=== PATIENT | male | born 1965 | race Caucasian/White ===

== ENCOUNTER 2017-04-26 10:16 | Emergency (ER) | payer MEDICARE, OTHER ==
[2017-04-26] MEDS ORDERED: ONDANSETRON HCL INJ/PF 4 MG/2 ML SDV IV ONE (10:35)
[2017-04-26] MEDS ORDERED: NORMAL SALINE 1000 ML 1,000 ML IV PRN (10:35)
--- NOTE | 2017-04-26 10:41 | ER Document Report ---
ED Medical Screen (RME) - General Chief Complaint: Vomiting Stated Complaint: BLOOD SUGAR PROBLEM Time Seen by Provider: 04/26/17 10:35 Mode of Arrival: Ambulatory Information source: Patient Notes: 51-year-old diabetic male presents with concerns of his pump is not working appropriately. Patient notes his blood sugars have been in the and Wednesday. Patient notes he had changed the infuser on Wednesday morning. He has been giving himself medications I have greeted and performed a rapid initial assessment of this patient. A comprehensive ED assessment and evaluation of the patient, analysis of test results and completion of the medical decision making process will be conducted by additional ED providers. PHYSICAL EXAMINATION: GENERAL: Well-appearing, well-nourished and in no acute distress. HEAD: Atraumatic, normocephalic. EYES: Pupils equal round extraocular movements intact, conjunctiva are normal. ENT: Nares patent NECK: Normal range of motion LUNGS: No respiratory distress Musculoskeletal: Normal range of motion NEUROLOGICAL: Normal speech, normal gait. PSYCH: Normal mood, normal affect. SKIN: Warm, Dry, normal turgor, no rashes or lesions noted. TRAVEL OUTSIDE OF THE [place] IN LAST 30 DAYS: No - Related Data Allergies/Adverse Reactions: No Known Allergies Allergy (Unverified 04/26/17 10:29) Past Medical History Renal/ Medical History: Denies: Hx Peritoneal Dialysis Physical Exam - Vital signs Vitals: Temp Pulse Resp BP Pulse Ox 98.0 F 106 H 16 139/83 H 99 04/26/17 10:30 04/26/17 10:30 04/26/17 10:30 04/26/17 10:30 04/26/17 10:30 Course - Vital Signs Vital signs: Temp Pulse Resp BP Pulse Ox 98.0 F 106 H 16 139/83 H 99 04/26/17 10:30 04/26/17 10:30 04/26/17 10:30 04/26/17 10:30 04/26/17 10:30
[2017-04-26 11:05] LABS: VENOUS BLOOD BASE EXCESS -0.7 mmol/L; VENOUS BLOOD HCO3 24.6 mmol/L (20-32); VENOUS BLOOD PCO2 42.8 mmHg (35-63); VENOUS BLOOD PH 7.38 (7.30-7.42)
[2017-04-26 11:06] LABS: ABSOLUTE BASOPHILS # (AUTO) 0.1 10^3/uL (0.0-0.2); ABSOLUTE EOSINOPHILS # (AUTO) 0.2 10^3/uL (0.0-0.6); ABSOLUTE LYMPHOCYTES (AUTO) 2.6 10^3/uL (0.5-4.7); ABSOLUTE MONOCYTES (AUTO) 1.3 10^3/uL (0.1-1.4); ABSOLUTE NEUT (AUTO) 8.8 10^3/uL (1.7-8.2); BASOPHILS % (AUTO) 0.6 % (0-2); EOSINOPHILS % (AUTO) 1.3 % (0-6); HEMATOCRIT 44.1 % (37.9-51.0); HEMOGLOBIN 15.3 g/dL (13.5-17.0); HGB HCT DIFFERENCE 1.8; LYMPHOCYTES % (AUTO) 20.1 % (13-45); MEAN CORPUSCULAR HEMOGLOBIN 30.3 pg (27.0-33.4); MEAN CORPUSCULAR HGB CONC 34.8 g/dL (32.0-36.0); MEAN CORPUSCULAR VOLUME 87 fl (80-97); MONOCYTES % (AUTO) 9.9 % (3-13); RED BLOOD COUNT 5.05 10^6/uL (4.35-5.55); RED CELL DISTRIBUTION WIDTH 12.8 % (11.5-14.0); SEGMENTED NEUTROPHILS % (AUTO) 68.1 % (42-78)
--- NOTE | 2017-04-26 11:15 | ER Document Report ---
ED General - General Chief Complaint: Vomiting Stated Complaint: BLOOD SUGAR PROBLEM Time Seen by Provider: 04/26/17 10:35 Mode of Arrival: Ambulatory Notes: 51-year-old male who presents today from the primary care physician after he states on Wednesday he felt as if his insulin pump is no longer working. He started to have some persistent elevated blood sugars in the 400s. He states he felt nauseous with some vomiting. He denies any and all chest pain, shortness of breath, calf pain or leg swelling. He denies any fevers or diarrhea. Patient went to the primary care physician's office who sent the patient immediately here without evaluation according to the patient. TRAVEL OUTSIDE OF THE [place] IN LAST 30 DAYS: No - HPI Onset: Other - See above Onset/Duration: Gradual Severity: Moderate Pain Level: Denies Associated symptoms: Other - See above Exacerbated by: Denies Relieved by: Denies Similar symptoms previously: No Recently seen / treated by doctor: No - Related Data Allergies/Adverse Reactions: No Known Allergies Allergy (Unverified 04/26/17 10:29) Past Medical History - General Information source: Patient - Social History Smoking Status: Current Every Day Smoker Frequency of alcohol use: daily Drug Abuse: None Family History: Reviewed & Not Pertinent Patient has suicidal ideation: No Renal/ Medical History: Denies: Hx Peritoneal Dialysis Review of Systems - Review of Systems Constitutional: denies: Fever EENT: denies: Eye discharge, Nose discharge Cardiovascular: denies: Chest pain, Palpitations Respiratory: denies: Short of breath Gastrointestinal: denies: Vomiting Genitourinary: denies: Dysuria Musculoskeletal: denies: Leg swelling Skin: Other - no hives. denies: Rash Neurological/Psychological: Other - no slurred speech -: Yes All other systems reviewed and negative Physical Exam - Vital signs Vitals: Temp Pulse Resp BP Pulse Ox 98.0 F 106 H 16 139/83 H 99 04/26/17 10:30 04/26/17 10:30 04/26/17 10:30 04/26/17 10:30 04/26/17 10:30 Notes: Reviewed vital signs and nursing note as charted by RN. CONSTITUTIONAL: Alert and oriented and responds appropriately to questions. Well -appearing; well-nourished HEAD: Normocephalic; atraumatic EYES: Sclerae non-icteric ENT: Normal nose; no rhinorrhea NECK: Supple without meningismus; non-tender; no cervical lymphadenopathy, no masses CARD: Regular rate and rhythm; no murmurs RESP: Normal chest excursion without splinting or tachypnea; breath sounds clear and equal bilaterally ABD/GI: Normal bowel sounds; non-distended; soft, non-tender to palpation of all 4 quadrants of the abdomen BACK: The back appears normal and is non-tender to palpation, there is no CVA tenderness EXT: Normal ROM in all joints; non-tender to palpation; no cyanosis, no effusions, no edema SKIN: Normal color for age and race; warm; dry; good turgor; capillary refill < 2 seconds; no acute lesions noted NEURO: Moves all extremities equally; Motor and sensory function intact PSYCH: The patient's mood and manner are appropriate. Grooming and personal hygiene are appropriate. Course - Re-evaluation Re-evalutation: 04/26/17 11:15 Given the above history and physical examination we will order a VBG, EKG, place the patient on the monitor, and reassess. Fluids have been started. Given the patient's history of cardiac disease with some elevated glucose, we will also add a troponin and an EKG. 04/26/17 11:15 EKG shows a heart of 95, normal sinus rhythm, normal axis, no obvious ST elevation or depression. 04/26/17 11:55 Labs as recorded. The patient does not appear to be in DKA. I have called Dr. Natalie Cannon's office to speak to one of the providers. 04/26/17 14:01 I was able to talk to Dr. Fitzpatrick's the patient's primary care physician. He states that the patient is able to be at the facility before 4 PM, they will be able to adjust the patient's insulin pump. 04/26/17 14:51 Repeat troponin is essentially unchanged. Patient has had no vomiting here at this facility. Patient will be discharged home with strict return precautions directly to the primary care physician's office. - Vital Signs Vital signs: Temp Pulse Resp BP Pulse Ox 98.0 F 106 H 20 120/70 97 04/26/17 14:01 04/26/17 10:30 04/26/17 14:01 04/26/17 14:01 04/26/17 14:01 - Laboratory Result Diagrams: 04/26/17 10:55 04/26/17 10:55 Laboratory results interpreted by me: 04/26/17 04/26/17 04/26/17 10:34 10:55 10:55 WBC 13.0 H Absolute Neutrophils 8.8 H BUN 26 H Glucose 252 H POC Glucose 253 H Direct Bilirubin 0.5 H Urine Glucose (UA) Urine Ketones 04/26/17 11:48 WBC Absolute Neutrophils BUN Glucose POC Glucose Direct Bilirubin Urine Glucose (UA) >=500 H Urine Ketones 80 H Discharge - Discharge Clinical Impression: Hyperglycemia due to type 1 diabetes mellitus Vomiting Qualifiers: Vomiting type: unspecified Vomiting Intractability: unspecified Nausea presence : with nausea Qualified Code(s): R11.2 - Nausea with vomiting, unspecified Condition: Good Disposition: HOME, SELF-CARE Additional Instructions: Come back immediately with any weakness, numbness, chest pain, persistent vomiting, or any other acute problems. Please go directly to your primary care physician's office for follow-up and readjustment of your insulin pump. Prescriptions: Ondansetron [Zofran Odt 4 mg Tablet] 1 tab PO Q6H #15 tab.rapdis Referrals: HAYES BAUTISTA MD [Primary Care Provider] - Follow up as needed
[2017-04-26 11:37] LABS: ALANINE AMINOTRANSFERASE 34 U/L (21-72); ALBUMIN 4.4 g/dL (3.5-5.0); ALKALINE PHOSPHATASE 102 U/L (38-126); ANION GAP 13 (5-19); ASPARTATE AMINO TRANSFERASE 31 U/L (17-59); BILIRUBIN,DIRECT 0.5 mg/dL (0.0-0.4); BILIRUBIN,TOTAL 1.3 mg/dL (0.2-1.3); BLOOD UREA NITROGEN 26 mg/dL (7-20); CARBON DIOXIDE 26 mmol/L (22-30); CHLORIDE 99 mmol/L (98-107); CREATININE RESULT 1.06 mg/dL (0.52-1.25); GLUCOSE 252 mg/dL (75-110); LIPASE 32.3 U/L (23-300); POTASSIUM 4.3 mmol/L (3.6-5.0); SODIUM 137.7 mmol/L (137-145); TOTAL PROTEIN 7.6 g/dL (6.3-8.2)
[2017-04-26 12:19] LABS: APPEARANCE,URINE CLEAR; BILIRUBIN,URINE NEGATIVE (NEGATIVE); GLUCOSE, URINE >=500 mg/dL (NEGATIVE); KETONES,URINE 80 mg/dL (NEGATIVE); LEUKOCYTE ESTERASE,URINE NEGATIVE (NEGATIVE); NITRITE,URINE NEGATIVE (NEGATIVE); PROTEIN,URINE NEGATIVE (NEGATIVE); UROBILINOGEN,URINE NEGATIVE mg/dL (<2.0)
--- NOTE | 2017-04-26 13:08 | EKG REPORT ---
SEVERITY:- ABNORMAL ECG - SINUS RHYTHM NONSPECIFIC T ABNORMALITIES, LATERAL LEADS : Confirmed by: Johnny Terry MD 26-Apr-2017 13:08:32
[2017-04-26 15:07] VITALS: BP 128/73
== END 2017-04-26 15:15 | disposition home or self-care (01) ==
LOC: ER 10:16
DX: E10.65 Type 1 diabetes mellitus with hyperglycemia (principal); Z96.41 Presence of insulin pump (external) (internal); R11.2 Nausea with vomiting, unspecified; F17.200 Nicotine dependence, unspecified, uncomplicated; Z86.79 Personal history of other diseases of the circulatory system
CPT/HCPCS: 93005; 99284; 96361; 96374; 36415; 82962; 83690; 85025; 80053; 81001; 84484; 82803; 93010; J2405; J7030